=== PATIENT | male | born 1960 | race Caucasian/White ===

== ENCOUNTER 2022-01-10 06:49 | Day surgery (SDC) | payer BC, SELFPAY ==
[2022-01-04 09:04] VITALS: BMI 28.8
--- NOTE | 2022-01-06 09:56 | MHC.SHP ---
Pre-Procedural Eval Section A Date of Service: 01/06/22 The patient is an INPATIENT: No Changes since office visit: No Cold of Flu in the past 2 weeks, No New Medical Problems, No Changes in Medication and No Patient answered all questions The History & Physical has been completed within 30 days and I have reviewed it.: Yes Section B Chief Complaint: cataract Allergies: Allergies Allergy/AdvReac Type Severity Reaction Status Date / Time Sulfa (Sulfonamide Allergy Unknown UNKNOWN Unverified 04/09/20 18:26 Antibiotics) [SULFA(SULFONAMIDE ANTIBIOTICS)] colchicine Allergy Unknown Verified 01/04/22 08:45 Plan Diagnosis/Plan: Unchanged I have reviewed the history and physical and performed a pertinent physical examination on my patient. No changes have occurred unless specified.
--- NOTE | 2022-01-07 10:51 | P.CONAN_ITS ---
Documented by User: Lynette Alfonso NP 01/07/22 10:59 HPI - Anesthesia Eval Consult details Narrative: 61yo M for Left Cataract Extraction IOL Insertion PCP cleared No previous [facility] Past Medical History Medical History (Updated 01/04/22 @ 08:44 by Dipti Rodriguez, RN) Chronic low back pain Chronic lymphoid leukemia CKD (chronic kidney disease), stage III DM type 2 (diabetes mellitus, type 2) Erythema nodosum Gout History of DVT (deep vein thrombosis) HTN (hypertension) Hx of pancreatitis Hyperlipidemia Idiopathic autoimmune hemolytic anemia STONE (nonalcoholic steatohepatitis) Solitary lung nodule Surgical History Surgical History (Updated 01/04/22 @ 08:45 by Dipti Rodriguez, GIL) H/O right cataract extraction History of excision of pilonidal cyst Hx of colonoscopy Hx of esophagogastroduodenoscopy Social History Social History Do you presently have visiting nurse or other home services: No Patient Tobacco Use Status: Never used Tobacco Second Hand Smoke Exposure: No Use of substances other than those prescribed or required for medical reasons: No Are you DNR?: No Advance Directives: No Advance Directives Information Provided: Yes Advance Directives on File: No Meds Allergies Allergy/AdvReac Type Severity Reaction Status Date / Time Sulfa (Sulfonamide Allergy Unknown UNKNOWN Unverified 04/09/20 18:26 Antibiotics) [SULFA(SULFONAMIDE ANTIBIOTICS)] colchicine Allergy Unknown Verified 01/04/22 08:45 Home Medications Medication Instructions Recorded Confirmed Last Taken Type allopurinol 100 mg tablet 400 mg PO DAILY 01/04/22 01/04/22 Unknown History amlodipine 2.5 mg tablet 2.5 mg PO DAILY 01/04/22 01/04/22 Unknown History amoxicillin 875 mg-potassium 1 tab PO Q12H 01/04/22 01/04/22 Unknown History clavulanate 125 mg tablet carvedilol 25 mg tablet 25 mg PO BID 01/04/22 01/04/22 Unknown History dapagliflozin 10 mg tablet 10 mg PO DAILY 01/04/22 01/04/22 Unknown History (Farxiga) fluticasone propionate 50 1 spray intranasal DAILY 01/04/22 01/04/22 Unknown History mcg/actuation nasal spray,suspension insulin glargine 100 unit/mL (3 50 unit subcut QPM 01/04/22 01/04/22 Unknown History mL) subcutaneous pen (Lantus Solostar U-100 Insulin) insulin lispro 100 unit/mL 15 unit subcut TID 01/04/22 01/04/22 Unknown History subcutaneous pen lisinopril 20 mg tablet 20 mg PO DAILY 01/04/22 01/04/22 Unknown History sildenafil 100 mg tablet 100 mg PO DAILY PRN Sexual Activity 01/04/22 01/04/22 Unknown History simvastatin 10 mg tablet 10 mg PO BEDTIME 01/04/22 01/04/22 Unknown History torsemide 10 mg tablet 10 mg PO DAILY 01/04/22 01/04/22 Unknown History Exam Exam Date and Time: January 07, 2022 1051 Height,Weight and Vital Signs: Height 6 ft 4 in Weight 107.501 kg Assessment and Plan Assessment Anesthesia Assessment: Chart Reviewed Documented by User: Leonard Lang MD 01/10/22 07:33 PMFSH Past Medical History Medical History (Updated 01/04/22 @ 08:44 by Dipti Rodriguez, RN) Chronic low back pain Chronic lymphoid leukemia CKD (chronic kidney disease), stage III DM type 2 (diabetes mellitus, type 2) Erythema nodosum Gout History of DVT (deep vein thrombosis) HTN (hypertension) Hx of pancreatitis Hyperlipidemia Idiopathic autoimmune hemolytic anemia STONE (nonalcoholic steatohepatitis) Solitary lung nodule Family History Family history of problems with anesthesia: No Surgical History Surgical History (Updated 01/04/22 @ 08:45 by Dipti Rodriguez, RN) H/O right cataract extraction History of excision of pilonidal cyst Hx of colonoscopy Hx of esophagogastroduodenoscopy History of Problems with Anesthesia: No Social History Social History Do you presently have visiting nurse or other home services: No Patient Tobacco Use Status: Never used Tobacco Second Hand Smoke Exposure: No Use of substances other than those prescribed or required for medical reasons: No Are you DNR?: No Advance Directives: No Advance Directives Information Provided: Yes Advance Directives on File: No Meds Allergies Allergy/AdvReac Type Severity Reaction Status Date / Time Sulfa (Sulfonamide Allergy Unknown UNKNOWN Unverified 04/09/20 18:26 Antibiotics) [SULFA(SULFONAMIDE ANTIBIOTICS)] colchicine Allergy Unknown Verified 01/04/22 08:45 Home Medications Medication Instructions Recorded Confirmed Last Taken Type allopurinol 100 mg tablet 400 mg PO DAILY 01/04/22 01/04/22 Unknown History amlodipine 2.5 mg tablet 2.5 mg PO DAILY 01/04/22 01/04/22 Unknown History amoxicillin 875 mg-potassium 1 tab PO Q12H 01/04/22 01/04/22 Unknown History clavulanate 125 mg tablet carvedilol 25 mg tablet 25 mg PO BID 01/04/22 01/04/22 Unknown History dapagliflozin 10 mg tablet 10 mg PO DAILY 01/04/22 01/04/22 Unknown History (Far) fluticasone propionate 50 1 spray intranasal DAILY 01/04/22 01/04/22 Unknown History mcg/actuation nasal spray,suspension insulin glargine 100 unit/mL (3 50 unit subcut QPM 01/04/22 01/04/22 Unknown History mL) subcutaneous pen (Lantus Solostar U-100 Insulin) insulin lispro 100 unit/mL 15 unit subcut TID 01/04/22 01/04/22 Unknown History subcutaneous pen lisinopril 20 mg tablet 20 mg PO DAILY 01/04/22 01/04/22 Unknown History sildenafil 100 mg tablet 100 mg PO DAILY PRN Sexual Activity 01/04/22 01/04/22 Unknown History simvastatin 10 mg tablet 10 mg PO BEDTIME 01/04/22 01/04/22 Unknown History torsemide 10 mg tablet 10 mg PO DAILY 01/04/22 01/04/22 Unknown History Exam Airway Mallampati Class: II TM Dist: >3cm Neck ROM: Full Assessment and Plan Assessment Anesthesia Assessment: Anesthesia Plan Discussed Final Anesthetic Review Family History of Problems with Anesthesia: No History of Problems with Anesthesia: No NPO: Yes ASA Class: III Final Preanesthetic Review: No Changes in Pt Med Stat, Meds/Allgs Chart Reviewed, Consent Obtained/Reviewed and Anes Risks/Benef Reviewed Patient Risk: Intermediate Procedure Risk: Low Anesthetic Plan Anesthetic Plan: MAC: Disposition: Standard PACU
[2022-01-10] MEDS: Tetracaine HCl/PF 0.5% Oph Sol 4 ML DROPS 1 DROP EYE-LEFT (07:40)
[2022-01-10] MEDS: Lactated Ringers 500 ML 50 ML IV (07:42)
[2022-01-10] MEDS: Tropicamide 1 % Ophth Sol 3 ML BTL 1 DROP EYE-LEFT ×3 (07:43→07:52)
[2022-01-10] MEDS: Phenylephrine HCL 2.5% Oph SoL 2 ML BOTTLE 1 DROP EYE-LEFT ×3 (07:48→07:54)
[2022-01-10 07:50] LABS: Glucose, Whole Blood 217 mg/dL (60-115)
--- NOTE | 2022-01-10 09:15 | HO.PNOPHT ---
Ophthalmology Procedure Procedure Date of Service: 01/10/22 Ophthalmology Viscoelastic: Healon Duet Dual Pack Pro Ophthalmology Lenses: TECNIS KP2484 (13.5) Procedure Notes: PREOPERATIVE DIAGNOSIS: Decreased visual acuity left eye secondary to cataract POSTOPERATIVE DIAGNOSIS: Same PROCEDURE: Left cataract extraction with intraocular lens insertion SURGEON: Gerard Holbrook M.D. ANESTHESIA: Topical/MAC ESTIMATED BLOOD LOSS: None COMPLICATIONS: None After obtaining informed consent, the patient was brought to the operation room suite and placed in the supine position. After adequate sedation per anesthesia, topical drops of Tetracaine were given to the left eye. The eye was then prepped and draped in the usual sterile fashion. The operating room microscope was then positioned over the operative eye and a lid speculum placed. A paracentesis was created. Viscoelastic was then instilled into the anterior chamber. A three plane incision was then created temporally, utilizing a 2.85 mm keratome. Capsulotomy forceps were then utilized to create a circular tear capsulotomy. Hydrodissection and hydrodelineation were carried out until adequate mobilization of the nucleus occurred. Phacoemulsification was then utilized to remove the dense central nucleus followed by removal of the cortical material utilizing the automated aspiration irrigation unit. Viscoat elastic was instilled into the posterior capsular bag followed by placement of a posterior chamber intraocular lens without difficulty. The residual Viscoat elastic was then removed utilizing the automated IA machine. The wound was check and found to be watertight. The patient tolerated the procedure well and the lid speculum was removed. Intracameral injection of Vigamox 0.1 mL followed by a subtenon injection of Kenalog-40 0.2 mL were administered. The patient will be seen in the a.m.
[2022-01-10 09:41] VITALS: BP 155/78; PULSE 67; RESP 18; TEMP 36.4; O2SAT 98
== END 2022-01-10 09:43 | disposition home or self-care (01) ==
PROVIDERS: PCP Internal Medicine; Visit Provider Ophthalmology
PROC: (CPT 66985; principal; 2022-01-10 09:00)
DX: H25.12 Age-related nuclear cataract, left eye (principal); H54.7 Unspecified visual loss; E78.5 Hyperlipidemia, unspecified; E11.22 Type 2 diabetes mellitus with diabetic chronic kidney disease; I12.9 Hypertensive chronic kidney disease with stage 1 through stage 4 chronic kidney disease, or unspecified chronic kidney disease; N18.30 Chronic kidney disease, stage 3 unspecified; Z79.4 Long term (current) use of insulin; Z79.899 Other long term (current) drug therapy; Z88.8 Allergy status to other drugs, medicaments and biological substances
CPT/HCPCS: 66984; 82947; J2250; J3010; J3300; V2632